=== PATIENT | female | born 1940 | race Caucasian/White ===

== ENCOUNTER 2017-08-23 18:41 | Inpatient (IN) ==
--- NOTE | 2017-08-23 19:06 | Emergency Department Note ---
Disposition Clinical Impression: Stroke Qualifiers: CVA mechanism: other Qualified Code(s): I63.8 - Other cerebral infarction Disposition: Admitted As Inpatient Condition: Good Referrals: Francisca Pan, [employer] MANAGER [Primary Care Provider] - Forms: ED Satisfaction Letter Time of Disposition: 22:00 General Adult HPI - General Chief complaint: ED Neuro Symptoms/Deficit Stated complaint: Left Arm Numbness / Tingling Time Seen by Provider: 08/23/17 18:46 Source: patient Limitations: no limitations Nursing Notes Reviewed: Yes Vital Signs Reviewed: Yes - History of Present Illness HPI Narrative: 77-year-old female positive for history of hypertension, chronic venous stasis, prediabetic, previous episodes of TIAs presents today with left-sided numbness starting since she woke up. Weakness starts at the shoulder also worse the distal arm. Patient says nothing relieves the weakness or numbness. She does not take anything for her symptoms. Denies chest pain, shortness of breath, cough, nausea, vomiting. No further acute complaints Pt Subjective Complaint: Left sided numbness and weakness - Related Data Home Medications Medication Instructions Recorded Confirmed ALPRAZolam [Xanax 0.5 MG Tablet] 0.5 mg PO TID 11/21/14 05/13/17 Albuterol Neb [Proventil Neb] 1 - 2 unit IH Q4HR 11/21/14 05/13/17 Calcium Carbonate/Vitamin D3 1 each PO DAILY 11/21/14 05/13/17 [Calcium 600 + D Tablet] Docusate [Colace] 100 mg PO BID 11/21/14 05/13/17 Fluticasone Propionate Nasal 1 spray NS DAILY 11/21/14 05/13/17 [Flonase] Gabapentin [Neurontin] 100 mg PO TID 11/21/14 05/13/17 Magnesium Oxide [Mag-Ox] 400 mg PO DAILY 11/21/14 05/13/17 Nitroglycerin [Nitrostat] 0.4 mg SL PRN PRN 11/21/14 05/13/17 Pantoprazole Sodium [Protonix] 40 mg PO DAILY 11/21/14 05/13/17 Potassium Chloride 20 meq PO DAILY 11/21/14 05/13/17 Pravastatin Sodium [Pravachol] 20 mg PO QPM 11/21/14 05/13/17 Aspirin/Calcium Carbonate/Mag 325 mg PO DAILY 04/22/16 05/13/17 [Aspirin Buffered 325 mg Tab] Ascorbic Acid [Vitamin C] 1,000 mg PO 08/07/17 Cephalexin [Keflex] 500 mg PO 08/07/17 Clotrimazole [Mycelex Amelia] 10 mg MM 5XD 08/07/17 08/07/17 Furosemide [Lasix] 20 mg PO DAILY 08/07/17 08/07/17 Metoprolol Succinate [Toprol Xl] 25 mg PO 08/07/17 Mv, Min #36/Iron,Carbonyl/FA 1 each PO 08/07/17 [Geritol Complete Tablet] Oxybutynin Chloride [Ditropan Xl] 5 mg PO 08/07/17 Super B Complex 08/07/17 Ubidecarenone [Coq10] 50 mg PO 08/07/17 Urea 08/07/17 Previous Rx's Medication Instructions Recorded Polyethylene Glycol 3350 [MiraLAX] 17 gm PO AD PRN #1 powd.pack 11/11/16 Calcium Carbonate [Calcium] 600 mg PO DAILY #30 tablet 05/15/17 Cholecalciferol (D-3) [Vitamin D] 5,000 unit PO DAILY #30 tablet 05/15/17 Sulfamethoxazole/Trimeth DS 1 each PO BID #14 tablet 08/07/17 [Bactrim DS] Tramadol HCl [Ultram] 50 mg PO TID PRN 5 Days #12 tab 08/07/17 Allergies Allergy/AdvReac Type Severity Reaction Status Date / Time bupropion [From Wellbutrin] Allergy Hives Verified 05/13/17 15:14 duloxetine [From Cymbalta] Allergy Hives Verified 08/07/17 19:10 Hydromorphone [From Dilaudid] Allergy Hives Verified 05/13/17 15:14 mirabegron [From Myrbetriq] Allergy Hives Verified 08/07/17 19:10 Oxaprozin [From Daypro] Allergy Rash Verified 05/13/17 15:14 acetaminophen [From Percocet] AdvReac Itching Verified 05/13/17 15:14 Oxycodone [From Percocet] AdvReac Itching Verified 05/13/17 15:14 Review of Systems: As Per HPI Constitutional: Reports: as per HPI Cardiovascular: Reports: as per HPI Respiratory: Reports: as per HPI Gastrointestinal: Reports: as per HPI Genitourinary: Reports: as per HPI Musculoskeletal: Reports: as per HPI Integumentary: Reports: as per HPI Neurological: Reports: as per HPI Past Medical History - Past Medical History Medical history: Reports: non-contributory Psychiatric history: Reports: depression - Social History Smoking Status: 2nd Hand Smoke Exposure Smokeless Tobacco Status: No Alcohol use: Reports: none Drug use: Reports: none Physical Exam - General Limitations: no limitations General appearance: alert, in no apparent distress - Head Head exam: atraumatic, normocephalic, normal inspection - Eye Eye exam: Present: normal appearance, PERRL, EOMI - Expanded Eye Exam Pupils: Left: reactive - ENT ENT exam: normal exam, normal oropharynx, mucous membranes moist - Expanded ENT Exam External ear exam: Present: normal external inspection Mouth exam: Present: normal external inspection Teeth exam: Present: normal inspection Throat exam: Present: normal inspection - Neck Neck exam: Present: normal inspection, full ROM, trachea midline - Chest Chest inspection: Present: normal inspection, symmetric chest wall rise - Respiratory Respiratory exam: Present: normal lung sounds bilaterally - Cardiovascular Cardiovascular exam: Present: regular rate, normal rhythm, normal heart sounds - Abdominal Exam Abdominal exam: Present: soft, Non-Tender. Absent: tenderness, distention, guarding, rebound, rigidity - Extremities Exam Extremities exam: Present: normal inspection, full ROM. Absent: tenderness, pedal edema - Expanded Upper Extremity Exam Shoulder exam: Present: normal inspection, full ROM Arm exam: Present: normal inspection, full ROM Elbow exam: Present: normal inspection, full ROM Forearm/Wrist exam: Present: normal inspection, full ROM Hand exam: Present: normal inspection, full ROM Vascular exam: Normal: capillary refill, radial pulse - Expanded Lower Extremity Exam Hip/Pelvis exam: Present: normal inspection, full ROM Upper leg exam: Present: normal inspection, full ROM Knee exam: Present: normal inspection, full ROM Lower leg exam: Present: normal inspection, full ROM Ankle exam: Present: normal inspection, full ROM Foot/toe exam: Present: normal inspection, full ROM Neurovascular/Tendon exam: Absent: motor deficit, sensory deficit, tendon deficit - Back Exam Back exam: Present: normal inspection, full ROM. Absent: tenderness - Neurological Exam Neurological exam: Present: alert, oriented X3 - Expanded Neurological Exam Patient oriented to: Present: person, place, time Coma Scale Eye Opening: Spontaneous Coma Scale Motor Response: Obeys Commands Coma Scale Verbal Response: Oriented Coma Scale Total: 15 - Psychiatric Psychiatric exam: Present: normal affect, normal mood - Skin Skin exam: Present: warm, dry, intact, normal color Course Course Narrative: Patient's CT head with multiple small foci of parenchymal low density. Likely chronic. Pending consult to neurology. - Reevaluation(s) Reevaluation #1: Spoke with Dr. Ariza, neurology, he recommends to admit patient into a hospitalist service for stroke workup. Pending admission - Consultations Consultation #1: Neurology, Dr. Ariza Vital Signs Temperature 98.9 F 08/23/17 18:58 Pulse Rate 68 08/23/17 18:58 Respiratory Rate 18 08/23/17 18:58 Blood Pressure 130/71 08/23/17 18:58 O2 Sat by Pulse Oximetry 96 08/23/17 18:58 Temperature 98.9 F 08/23/17 19:00 Pulse Rate 65 08/23/17 20:43 Respiratory Rate 18 08/23/17 22:07 Blood Pressure 125/59 08/23/17 22:07 O2 Sat by Pulse Oximetry 96 08/23/17 20:43 Oxygen Delivery Oxygen Delivery Room Air Medical Decision Making - Medical Records Medical records reviewed: Yes I reviewed the patient's medical records. - Lab Data Lab results reviewed: Yes I reviewed the patient's lab results. Result diagrams: 08/23/17 19:43 08/23/17 19:43 Lab Results 08/23/17 08/23/17 08/23/17 Range/Units 19:43 19:43 19:43 WBC 7.6 (4.3-11.1) K/mcL RBC 4.22 (3.82-4.97) M/mcL Hgb 13.0 (11.5-15.4) g/dL Hct 40.4 (35.3-44.9) % MCV 95.7 (83.0-100.0) fL MCH 30.8 (28.0-33.3) pg MCHC 32.2 (31.6-35.5) g/dL RDW 14.2 (11.5-14.5) % Plt Count 269 (140-400) K/mcL MPV 10.2 (9.4-12.4) fL Immature Gran % 0.5 (0-4) % Seg Neutrophils % 81.0 % Lymphocytes % 9.0 % Monocytes % 9.4 % Eosinophils % 0.0 % Basophils % 0.1 % Neutrophils # 6.1 (1.6-8.9) K/mcL Lymphocytes # 0.7 (0.6-4.6) K/mcL Monocytes # 0.7 (0.0-1.3) K/mcL Eosinophils # 0.0 (0.0-0.6) K/mcL Basophils # 0.0 (0.0-0.2) K/mcL PT (9.4-12.1) Seconds INR Sodium 142 (136-145) mEq/L Potassium 3.8 (3.5-5.1) mEq/L Chloride 108 H (98-107) mEq/L Carbon Dioxide 25 (23-29) mEq/L BUN 19 (8-23) mg/dL Creatinine 0.72 (0.60-1.20) mg/dL Est GFR ( Amer) > 60 (> 60) Est GFR (Non-Af Amer) > 60 (> 60) BUN/Creatinine Ratio 26 (6-26) Glucose 132 H (70-105) mg/dL Calculated Osmolality 298 (280-300) Calcium 9.4 (8.6-10.3) mg/dL Total Bilirubin 0.6 (0.3-1.0) mg/dL AST 24 (13-39) Units/L ALT 29 (7-52) Units/L Alkaline Phosphatase 61 (34-104) Units/L Troponin I < 0.03 (< 0.04) ng/mL Serum Total Protein 6.3 L (6.4-8.9) g/dL Albumin 3.6 (3.5-5.7) g/dL Globulin 2.7 (2.4-3.5) g/dL Albumin/Globulin Ratio 1.3 (1.1-2.2) 08/23/17 Range/Units 19:43 WBC (4.3-11.1) K/mcL RBC (3.82-4.97) M/mcL Hgb (11.5-15.4) g/dL Hct (35.3-44.9) % MCV (83.0-100.0) fL MCH (28.0-33.3) pg MCHC (31.6-35.5) g/dL RDW (11.5-14.5) % Plt Count (140-400) K/mcL MPV (9.4-12.4) fL Immature Gran % (0-4) % Seg Neutrophils % % Lymphocytes % % Monocytes % % Eosinophils % % Basophils % % Neutrophils # (1.6-8.9) K/mcL Lymphocytes # (0.6-4.6) K/mcL Monocytes # (0.0-1.3) K/mcL Eosinophils # (0.0-0.6) K/mcL Basophils # (0.0-0.2) K/mcL PT 11.9 (9.4-12.1) Seconds INR 1.1 Sodium (136-145) mEq/L Potassium (3.5-5.1) mEq/L Chloride (98-107) mEq/L Carbon Dioxide (23-29) mEq/L BUN (8-23) mg/dL Creatinine (0.60-1.20) mg/dL Est GFR ( Amer) (> 60) Est GFR (Non-Af Amer) (> 60) BUN/Creatinine Ratio (6-26) Glucose (70-105) mg/dL Calculated Osmolality (280-300) Calcium (8.6-10.3) mg/dL Total Bilirubin (0.3-1.0) mg/dL AST (13-39) Units/L ALT (7-52) Units/L Alkaline Phosphatase (34-104) Units/L Troponin I (< 0.04) ng/mL Serum Total Protein (6.4-8.9) g/dL Albumin (3.5-5.7) g/dL Globulin (2.4-3.5) g/dL Albumin/Globulin Ratio (1.1-2.2) - Radiology Data Radiology results reviewed: Yes I reviewed the patient's radiology results. - EKG Data EKG #1 EKG attestation: Yes I reviewed and interpreted this EKG. EKG shows normal: sinus rhythm Rate: normal Rhythm: NSR When compared to previous EKG there are: no significant changes Interpretation: no acute changes, normal EKG
[2017-08-23 19:59] LABS: Basophils % 0.1 %; Hematocrit 40.4 % (35.3-44.9); Immature Granulocytes % 0.5 % (0-4); Lymphocytes # 0.7 K/mcL (0.6-4.6); Mean Corpuscular HGB Conc 32.2 g/dL (31.6-35.5); Mean Corpuscular Hemoglobin 30.8 pg (28.0-33.3); Mean Corpuscular Volume 95.7 fL (83.0-100.0); Mean Platelet Volume 10.2 fL (9.4-12.4); Monocytes # 0.7 K/mcL (0.0-1.3); Monocytes % 9.4 %; Neutrophils # 6.1 K/mcL (1.6-8.9); Platelet Count 269 K/mcL (140-400); Red Blood Count 4.22 M/mcL (3.82-4.97); Red Cell Distribution Width 14.2 % (11.5-14.5)
[2017-08-23 20:05] LABS: INR 1.1; Prothrombin Time 11.9 Seconds (9.4-12.1)
[2017-08-23 20:18] LABS: Alanine Aminotransferase 29 Units/L (7-52); Albumin 3.6 g/dL (3.5-5.7); Albumin/Globulin Ratio 1.3 (1.1-2.2); Alkaline Phosphatase 61 Units/L (34-104); Aspartate Amino Transferase 24 Units/L (13-39); BUN/Creatinine Ratio 26 (6-26); Bilirubin,Total 0.6 mg/dL (0.3-1.0); Blood Urea Nitrogen 19 mg/dL (8-23); Calcium 9.4 mg/dL (8.6-10.3); Carbon Dioxide 25 mEq/L (23-29); Chloride 108 mEq/L (98-107); Globulin 2.7 g/dL (2.4-3.5); Glucose 132 mg/dL (70-105); Osmolality,Calculated 298 (280-300); Potassium 3.8 mEq/L (3.5-5.1); Sodium 142 mEq/L (136-145); Total Protein 6.3 g/dL (6.4-8.9); eGFR For African Americans > 60 (> 60); eGFR For Non-African Americans > 60 (> 60)
[2017-08-23] MEDS ORDERED: Aspirin 325 MG TABLET PO ONE (21:31)
[2017-08-23] MEDS ORDERED: Naloxone 0.4 MG/ML INJ IVP PRN (22:03)
--- NOTE | 2017-08-23 22:05 | Emergency Department Note ---
Disposition Clinical Impression: Stroke Qualifiers: CVA mechanism: other Qualified Code(s): I63.8 - Other cerebral infarction Disposition: Admitted As Inpatient Condition: Fair Neuro HPI - General Chief Complaint: ED Neuro Symptoms/Deficit Stated Complaint: Left Arm Numbness / Tingling Time Seen by Provider: 08/23/17 18:46 Source: patient Mode of arrival: ambulatory Limitations: no limitations Nursing Notes Reviewed: Yes Vital Signs Reviewed: Yes - Related Data Home Medications: Home Medications Medication Instructions Recorded Confirmed ALPRAZolam [Xanax 0.5 MG Tablet] 0.5 mg PO TID 11/21/14 05/13/17 Albuterol Neb [Proventil Neb] 1 - 2 unit IH Q4HR 11/21/14 05/13/17 Calcium Carbonate/Vitamin D3 1 each PO DAILY 11/21/14 05/13/17 [Calcium 600 + D Tablet] Docusate [Colace] 100 mg PO BID 11/21/14 05/13/17 Fluticasone Propionate Nasal 1 spray NS DAILY 11/21/14 05/13/17 [Flonase] Gabapentin [Neurontin] 100 mg PO TID 11/21/14 05/13/17 Magnesium Oxide [Mag-Ox] 400 mg PO DAILY 11/21/14 05/13/17 Nitroglycerin [Nitrostat] 0.4 mg SL PRN PRN 11/21/14 05/13/17 Pantoprazole Sodium [Protonix] 40 mg PO DAILY 11/21/14 05/13/17 Potassium Chloride 20 meq PO DAILY 11/21/14 05/13/17 Pravastatin Sodium [Pravachol] 20 mg PO QPM 11/21/14 05/13/17 Aspirin/Calcium Carbonate/Mag 325 mg PO DAILY 04/22/16 05/13/17 [Aspirin Buffered 325 mg Tab] Ascorbic Acid [Vitamin C] 1,000 mg PO 08/07/17 Cephalexin [Keflex] 500 mg PO 08/07/17 Clotrimazole [Mycelex Amelia] 10 mg MM 5XD 08/07/17 08/07/17 Furosemide [Lasix] 20 mg PO DAILY 08/07/17 08/07/17 Metoprolol Succinate [Toprol Xl] 25 mg PO 08/07/17 Mv, Min #36/Iron,Carbonyl/FA 1 each PO 08/07/17 [Geritol Complete Tablet] Oxybutynin Chloride [Ditropan Xl] 5 mg PO 08/07/17 Super B Complex 08/07/17 Ubidecarenone [Coq10] 50 mg PO 08/07/17 Urea 08/07/17 Previous Rx's Medication Instructions Recorded Polyethylene Glycol 3350 [MiraLAX] 17 gm PO AD PRN #1 powd.pack 11/11/16 Calcium Carbonate [Calcium] 600 mg PO DAILY #30 tablet 05/15/17 Cholecalciferol (D-3) [Vitamin D] 5,000 unit PO DAILY #30 tablet 05/15/17 Sulfamethoxazole/Trimeth DS 1 each PO BID #14 tablet 08/07/17 [Bactrim DS] Tramadol HCl [Ultram] 50 mg PO TID PRN 5 Days #12 tab 08/07/17 Allergies/Adverse Reactions: Allergies Allergy/AdvReac Type Severity Reaction Status Date / Time bupropion [From Wellbutrin] Allergy Hives Verified 05/13/17 15:14 duloxetine [From Cymbalta] Allergy Hives Verified 08/07/17 19:10 Hydromorphone [From Dilaudid] Allergy Hives Verified 05/13/17 15:14 mirabegron [From Myrbetriq] Allergy Hives Verified 08/07/17 19:10 Oxaprozin [From Daypro] Allergy Rash Verified 05/13/17 15:14 acetaminophen [From Percocet] AdvReac Itching Verified 05/13/17 15:14 Oxycodone [From Percocet] AdvReac Itching Verified 05/13/17 15:14 Constitutional: Reports: as per HPI Cardiovascular: Reports: as per HPI Respiratory: Reports: as per HPI Gastrointestinal: Reports: as per HPI Genitourinary: Reports: as per HPI Musculoskeletal: Reports: as per HPI Integumentary: Reports: as per HPI Neurological: Reports: as per HPI Past Medical History - Past Medical History Medical history: Reports: non-contributory Psychiatric history: Reports: depression - Social History Smoking Status: 2nd Hand Smoke Exposure Smokeless Tobacco Status: No Alcohol use: Reports: none Drug use: Reports: none Physical Exam - General Limitations: no limitations General appearance: alert, in no apparent distress Course Vital Signs Temperature 98.9 F 08/23/17 18:58 Pulse Rate 68 08/23/17 18:58 Respiratory Rate 18 08/23/17 18:58 Blood Pressure 130/71 08/23/17 18:58 O2 Sat by Pulse Oximetry 96 08/23/17 18:58 Temperature 98.9 F 08/23/17 19:00 Pulse Rate 65 08/23/17 20:43 Respiratory Rate 14 08/23/17 20:43 Blood Pressure 139/67 08/23/17 20:43 O2 Sat by Pulse Oximetry 96 08/23/17 20:43 Oxygen Delivery Oxygen Delivery Room Air Neuro Symptoms/Deficit - Lab Data Result diagrams: 08/23/17 19:43 08/23/17 19:43 Lab Results 08/23/17 08/23/17 08/23/17 Range/Units 19:43 19:43 19:43 WBC 7.6 (4.3-11.1) K/mcL RBC 4.22 (3.82-4.97) M/mcL Hgb 13.0 (11.5-15.4) g/dL Hct 40.4 (35.3-44.9) % MCV 95.7 (83.0-100.0) fL MCH 30.8 (28.0-33.3) pg MCHC 32.2 (31.6-35.5) g/dL RDW 14.2 (11.5-14.5) % Plt Count 269 (140-400) K/mcL MPV 10.2 (9.4-12.4) fL Immature Gran % 0.5 (0-4) % Seg Neutrophils % 81.0 % Lymphocytes % 9.0 % Monocytes % 9.4 % Eosinophils % 0.0 % Basophils % 0.1 % Neutrophils # 6.1 (1.6-8.9) K/mcL Lymphocytes # 0.7 (0.6-4.6) K/mcL Monocytes # 0.7 (0.0-1.3) K/mcL Eosinophils # 0.0 (0.0-0.6) K/mcL Basophils # 0.0 (0.0-0.2) K/mcL PT (9.4-12.1) Seconds INR Sodium 142 (136-145) mEq/L Potassium 3.8 (3.5-5.1) mEq/L Chloride 108 H (98-107) mEq/L Carbon Dioxide 25 (23-29) mEq/L BUN 19 (8-23) mg/dL Creatinine 0.72 (0.60-1.20) mg/dL Est GFR ( Amer) > 60 (> 60) Est GFR (Non-Af Amer) > 60 (> 60) BUN/Creatinine Ratio 26 (6-26) Glucose 132 H (70-105) mg/dL Calculated Osmolality 298 (280-300) Calcium 9.4 (8.6-10.3) mg/dL Total Bilirubin 0.6 (0.3-1.0) mg/dL AST 24 (13-39) Units/L ALT 29 (7-52) Units/L Alkaline Phosphatase 61 (34-104) Units/L Troponin I < 0.03 (< 0.04) ng/mL Serum Total Protein 6.3 L (6.4-8.9) g/dL Albumin 3.6 (3.5-5.7) g/dL Globulin 2.7 (2.4-3.5) g/dL Albumin/Globulin Ratio 1.3 (1.1-2.2) 08/23/17 Range/Units 19:43 WBC (4.3-11.1) K/mcL RBC (3.82-4.97) M/mcL Hgb (11.5-15.4) g/dL Hct (35.3-44.9) % MCV (83.0-100.0) fL MCH (28.0-33.3) pg MCHC (31.6-35.5) g/dL RDW (11.5-14.5) % Plt Count (140-400) K/mcL MPV (9.4-12.4) fL Immature Gran % (0-4) % Seg Neutrophils % % Lymphocytes % % Monocytes % % Eosinophils % % Basophils % % Neutrophils # (1.6-8.9) K/mcL Lymphocytes # (0.6-4.6) K/mcL Monocytes # (0.0-1.3) K/mcL Eosinophils # (0.0-0.6) K/mcL Basophils # (0.0-0.2) K/mcL PT 11.9 (9.4-12.1) Seconds INR 1.1 Sodium (136-145) mEq/L Potassium (3.5-5.1) mEq/L Chloride (98-107) mEq/L Carbon Dioxide (23-29) mEq/L BUN (8-23) mg/dL Creatinine (0.60-1.20) mg/dL Est GFR ( Amer) (> 60) Est GFR (Non-Af Amer) (> 60) BUN/Creatinine Ratio (6-26) Glucose (70-105) mg/dL Calculated Osmolality (280-300) Calcium (8.6-10.3) mg/dL Total Bilirubin (0.3-1.0) mg/dL AST (13-39) Units/L ALT (7-52) Units/L Alkaline Phosphatase (34-104) Units/L Troponin I (< 0.04) ng/mL Serum Total Protein (6.4-8.9) g/dL Albumin (3.5-5.7) g/dL Globulin (2.4-3.5) g/dL Albumin/Globulin Ratio (1.1-2.2) TPA Checklist - LKW: 3-4.5 hrs Add. Warnings/Precautions Patient/family understanding: The patient/family members have been counseled and understood the risk, benefit , and alternatives of treatment. Attestation Statement - Attestation Attestation: I, Marbin Arizmendi, examined this patient and my medical decision-making was reviewed with the [employer] T[employer]ER/PA/Advanced Practice Nurse/Resident Physician. I agree with the documented findings, disposition and treatment plan as described except to the extent set forth below. 77-year-old female presents emergency Department with concerns of left upper extremity paresthesias. Patient states symptoms started upon waking this morning. Last time was normal was last night prior to bed. Patient denies recent trauma. She has a history of TIAs in the past and followed Dr. Romero. Patient denies recent fever, chills, nausea, vomiting, chest pain, shortness of breath. No change in the patient's recent medications. CTA of the head did not show evidence of acute fracture or intracranial hemorrhage. Patient is not a candidate for TPA as she is outside the time window and also has an NIH of 1. I spoke with the neurologist, Dr. Romero as well as the [facility] neurologists who both agreed with this plan. Patient will be admitted to the hospitalist for further care and evaluation.
--- NOTE | 2017-08-23 22:24 | Internal Med History&Physical ---
Date of Encounter: 08/23/17 Time of Encounter: 21:00 Internal Medicine - H&P: HPI Chief complaint: Left arm numbness Admitted From: Home Plans for Post Hospital Care: Home History of present illness: Ms. Chase is a 77 year old female present to ER for left arm numbness. Past medical history is significant for history of TIA, breast cancer, prediabetes, hypertension, asthma, S/P bilateral total knee replacement, S/P bariatric surgery. Patient said this morning around 8 AM when she wakes up from sleep she feels left arm numbness and weakness with left hand and finger tingling. Patient denies slurred speech, vision change, or dizziness. The symptoms is mild but persistent, patient came to ER for evaluation. In the emergency room, [facility] stroke center consult was called. Patient is not a candidate for TPA. I will neurology was called and recommend admit patient to hospital for further management. Patient was given aspirin 325 mg by mouth once and admitted to the hospital. When I saw patient in ER, her symptoms has slightly improved but not completely resolved. Past Med Surg Social Fam HX - Past Medical History Medical history: non-contributory Additional medical history: barrets esophagus Psychiatric history: depression - Past Surgical History Additional surgical history: gastric bypass, right rotator cuff surgery - Social History Smoking Status: 2nd Hand Smoke Exposure Smokeless Tobacco Status: No Alcohol use: none Drug use: none - Family History Mother History Unknown: Yes Internal Medicine - H&P: Meds ALPRAZolam [Xanax 0.5 MG Tablet] 0.5 mg PO TID 11/21/14 [History] Albuterol Neb [Proventil Neb] 1 - 2 unit IH Q4HR 11/21/14 [History] Calcium Carbonate/Vitamin D3 [Calcium 600 + D Tablet] 1 each PO DAILY 11/21/14 [ History] Docusate [Colace] 100 mg PO BID 11/21/14 [History] Fluticasone Propionate Nasal [Flonase] 1 spray NS DAILY 11/21/14 [History] Gabapentin [Neurontin] 100 mg PO TID 11/21/14 [History] Magnesium Oxide [Mag-Ox] 400 mg PO DAILY 11/21/14 [History] Nitroglycerin [Nitrostat] 0.4 mg SL PRN PRN 11/21/14 [History] Pantoprazole Sodium [Protonix] 40 mg PO DAILY 11/21/14 [History] Potassium Chloride 20 meq PO DAILY 11/21/14 [History] Pravastatin Sodium [Pravachol] 20 mg PO QPM 11/21/14 [History] Aspirin/Calcium Carbonate/Mag [Aspirin Buffered 325 mg Tab] 325 mg PO DAILY 09/29 [History] Polyethylene Glycol 3350 [MiraLAX] 17 gm PO AD PRN #1 powd.pack 11/11/16 [Rx] Calcium Carbonate [Calcium] 600 mg PO DAILY #30 tablet 05/15/17 [Rx] Cholecalciferol (D-3) [Vitamin D] 5,000 unit PO DAILY #30 tablet 05/15/17 [Rx] Ascorbic Acid [Vitamin C] 1,000 mg PO 08/07/17 [History] Cephalexin [Keflex] 500 mg PO 08/07/17 [History] Clotrimazole [Mycelex Amelia] 10 mg MM 5XD 08/07/17 [History] Furosemide [Lasix] 20 mg PO DAILY 08/07/17 [History] Metoprolol Succinate [Toprol Xl] 25 mg PO 08/07/17 [History] Mv, Min #36/Iron,Carbonyl/FA [Geritol Complete Tablet] 1 each PO 08/07/17 [ History] Oxybutynin Chloride [Ditropan Xl] 5 mg PO 08/07/17 [History] Sulfamethoxazole/Trimeth DS [Bactrim DS] 1 each PO BID #14 tablet 08/07/17 [Rx] Super B Complex 08/07/17 [History] Tramadol HCl [Ultram] 50 mg PO TID PRN 5 Days #12 tab 08/07/17 [Rx] Ubidecarenone [Coq10] 50 mg PO 08/07/17 [History] Urea 08/07/17 [History] 3 Allergy/AdvReac Type Severity Reaction Status Date / Time bupropion [From Wellbutrin] Allergy Hives Verified 05/13/17 15:14 duloxetine [From Cymbalta] Allergy Hives Verified 08/07/17 19:10 Hydromorphone [From Dilaudid] Allergy Hives Verified 05/13/17 15:14 mirabegron [From Myrbetriq] Allergy Hives Verified 08/07/17 19:10 Oxaprozin [From Daypro] Allergy Rash Verified 05/13/17 15:14 acetaminophen [From Percocet] AdvReac Itching Verified 05/13/17 15:14 Oxycodone [From Percocet] AdvReac Itching Verified 05/13/17 15:14 All Systems PM: A 10-system review of systems was performed and is negative for pertinent findings except as documented above in the HPI. - Constitutional Vitals: Temp Pulse Resp BP Pulse Ox 98.9 F 65 18 125/59 96 08/23/17 19:00 08/23/17 20:43 08/23/17 22:07 08/23/17 22:07 08/23/17 20:43 General appearance: Present: A&O X 3, no acute distress, answers questions appropriately - Head Head exam: Present: atraumatic, normocephalic - Eye Eye exam: Present: PERRL, conjuntiva pink, sclera anicteric Pupils: Present: PERRL - Neck Neck exam general surgery: Present: supple, trachea midline. Absent: lymphadenopathy - Respiratory Respiratory exam: Present: CTAB. Absent: accessory muscle use, rales, rhonchi, wheezes - Cardiovascular Cardiovascular exam: Present: RRR, +S1, +S2. Absent: diastolic murmur, gallop, rubs, systolic murmur - GI/Abdominal GI/Abdominal exam: Present: normal bowel sounds, soft, no peritoneal signs. Absent: distended, tenderness - Extremities Exam Extremities exam: Present: warm, radial pulses palpable and symmetrical. Absent : calf tenderness, cyanotic, pedal edema - Neurological Exam Neurological exam: Present: CN II-XII intact, motor sensory deficit (Left arm Motor 5-/5), oriented X3, no focal deficits. Absent: pronater drift, facial droop, speech deficit - Skin Skin exam: Present: dry, intact Internal Med - H&P Results - Labs CBC & Chem 7: 08/23/17 19:43 08/23/17 19:43 - Assessment and plan (1) Stroke Current Visit: Yes Status: Acute Assessment and plan: Patient has left arm weakness and numbness. Suspect CVA. History of TIA. CT head has been done, no bleeding, no acute abnormalities. - We will place a MR Head in AM - Continuous cardiac monitoring to rule out occult A. fib - Echo and duplex carotid bilaterally - Neurology consult - [facility] SS protocol - PTOT evaluation - Patient has no swallow problems, will place her on diabetic diet Qualifiers: CVA mechanism: other Qualified Code(s): I63.8 - Other cerebral infarction (2) Hypertension Current Visit: Yes Status: Acute Assessment and plan: Patient BP is not high. Hold hypertensive medication for permissive hypertension as CVA is suspected. Qualifiers: Hypertension type: essential hypertension Qualified Code(s): I10 - Essential (primary) hypertension (3) Prediabetes Current Visit: Yes Status: Acute Assessment and plan: Continue diet control. (4) DVT prophylaxis Current Visit: Yes Status: Acute Assessment and plan: Heparin subcutaneously (5) Breast cancer Current Visit: No Status: Chronic Assessment and plan: S/P surgery and radiation therapy. Continue outpatient follow-up. Qualifiers: Breast location: unspecified site of breast Estrogen receptor status: unspecified Patient sex: female Laterality: left Qualified Code(s): C50.912 - Malignant neoplasm of unspecified site of left female breast - Time Spent With Patient Total time spent is greater than 50% in coordination of care (as documented) at patient's floor/unit and/or counseling patient:
[2017-08-23] MEDS ORDERED: Nitroglycerin 0.4 MG TAB.SUBL SL PRN (23:55)
[2017-08-24] MEDS: Gabapentin 100 MG CAPSULE PO SCH ×4 (00:55→23:48)
[2017-08-24] MEDS: ALPRAZolam 0.5 MG TABLET PO SCH ×3 (00:55→23:49)
[2017-08-24] MEDS: Albuterol 2.5 MG/3 ML NEBULIZER IH SCH ×7 (03:25→23:03)
[2017-08-24 05:08] LABS: Hematocrit 38.7 % (35.3-44.9); Hemoglobin 12.4 g/dL (11.5-15.4); Immature Granulocytes % 0.6 % (0-4); Lymphocytes # 0.9 K/mcL (0.6-4.6); Lymphocytes % 14.1 %; Mean Corpuscular Hemoglobin 30.8 pg (28.0-33.3); Mean Platelet Volume 10.2 fL (9.4-12.4); Monocytes # 0.6 K/mcL (0.0-1.3); Monocytes % 9.5 %; Neutrophils # 4.7 K/mcL (1.6-8.9); Platelet Count 230 K/mcL (140-400); Red Blood Count 4.03 M/mcL (3.82-4.97); Red Cell Distribution Width 14.2 % (11.5-14.5); Segmented Neutrophils % 75.8 %
[2017-08-24 05:31] LABS: BUN/Creatinine Ratio 28 (6-26); Blood Urea Nitrogen 14 mg/dL (8-23); Calcium 8.9 mg/dL (8.6-10.3); Carbon Dioxide 25 mEq/L (23-29); Chloride 110 mEq/L (98-107); Glucose 128 mg/dL (70-105); Osmolality,Calculated 294 (280-300); Potassium 3.9 mEq/L (3.5-5.1); Sodium 141 mEq/L (136-145); eGFR For African Americans > 60 (> 60); eGFR For Non-African Americans > 60 (> 60)
[2017-08-24] MEDS: *HR* Heparin 5,000 UNIT/ML VIAL SQ SCH ×2 (05:32→18:13)
[2017-08-24] MEDS: Aspirin Enteric Coated 325 MG Tablet PO SCH (08:59)
[2017-08-24] MEDS: Magnesium Oxide 400 MG TABLET PO SCH (08:59)
[2017-08-24] MEDS: Fluticasone Propionate Nasal 50 MCG/SPRAY BOTTLE NS SCH (09:00)
[2017-08-24] MEDS: Cholecalciferol (D-3) 1,000 UNIT TABLET PO SCH (09:00)
[2017-08-24] MEDS ORDERED: NON-FORMULARY MEDICATION 1 EACH EACH (Calcium Carbonate/Vitamin D3 [Calcium 600 + D Tablet PO SCH (09:00)
--- NOTE | 2017-08-24 10:43 | Neurology - Consult Note ---
Date of Encounter: 08/24/17 Time of Encounter: 09:15 Assessment and Plan (1) Left arm weakness Current Visit: Yes Status: Acute Patient presented with complaints of left Upper extremity weakness and feeling that the arm felt "off" Patient reported feeling off from shoulder down to hand. Patient reports feeling has improved now just finger pads feel "off" Patient has hx of prediabietes, prior TIAs, and family hx of stroke. On exam strength appears symmetric in upper extremities, some strength seems to be limited by pain in L shoulder which is chronic. Only deficit appears to be "off" sensation in L finger pads at this time. Based on patient's presentation differential is stroke vs TIA vs. radiculopathy vs. peripheral neuropathy. Recommend completing stroke work up as planned: MRI Carotid U/S ECHO Cardiac Monitoring PT/OT consult Maximize medical management of risk factors Patient already on statin(though not high intensity statin) with good LDL History of Present Illness Chief complaint: L arm Weakness HPI: Ms. Chase is a 77 year old female c PMHx of TIA, breast cancer, prediabetes, hypertension, asthma, S/P bilateral total knee replacement, S/P bariatric surgery reports to [facility] yesterday morning c/o L Arm Weakness that was present upon waking. Patient reports she woke up the morning of 08/23/17 and went to clean the toilet. She attempted to turn the water valve on the back of the toilet which she has done routinely for years and found she was unable to turn it. She noted at that time her whole arm felt "off". She came into the ED and was worked up for possible stroke. On their exam patient had NIH stroke scale of 1. Unclear in documentation, but likely 1 point was for sensation difference. Patient had a CT head which showed old hypodensities, but no acute pathology. Last known normal was the night before. Teleneurology consult with [facility] was performed and consult to neurology here at [facility] placed. No TPA given as patient out of window and low NIH stroke scale. Patient denies recent trauma, changes in medications, recent fever, illness. Patient denies chest pain, SOB, Abd pain, Nausea, vomiting. Patient is on statin and aspirin. Patient recent Cholesterol panel in June of 2017 showed LDL of 54. Patient denies having any LLE sxs, Facial sxs, or slurred speech. She reports her sxs have improved and only the pads of all 5 fingers feel "off" to her right now. Past Med Surg Social Fam HX - Past Medical History Medical history: non-contributory Additional medical history: barrets esophagus Psychiatric history: depression - Past Surgical History Additional surgical history: gastric bypass, right rotator cuff surgery - Social History Smoking Status: 2nd Hand Smoke Exposure Smokeless Tobacco Status: No Alcohol use: none Drug use: none - Family History Mother History Unknown: Yes Medications and Allergies ALPRAZolam [Xanax 0.5 MG Tablet] 0.5 mg PO QPM 11/21/14 [History] Albuterol Neb [Proventil Neb] 1 - 2 unit IH Q4HR 11/21/14 [History] Calcium Carbonate/Vitamin D3 [Calcium 600 + D Tablet] 1 each PO DAILY 11/21/14 [ History] Fluticasone Propionate Nasal [Flonase] 1 spray NS DAILY 11/21/14 [History] Gabapentin [Neurontin] 100 mg PO TID 11/21/14 [History] Magnesium Oxide [Mag-Ox] 400 mg PO DAILY 11/21/14 [History] Nitroglycerin [Nitrostat] 0.4 mg SL PRN PRN 11/21/14 [History] Pantoprazole Sodium [Protonix] 40 mg PO DAILY 11/21/14 [History] Potassium Chloride 20 meq PO DAILY 11/21/14 [History] Pravastatin Sodium [Pravachol] 20 mg PO QPM 11/21/14 [History] Aspirin/Calcium Carbonate/Mag [Aspirin Buffered 325 mg Tab] 325 mg PO DAILY 09/29 [History] Polyethylene Glycol 3350 [MiraLAX] 17 gm PO AD PRN #1 powd.pack 11/11/16 [Rx] Calcium Carbonate [Calcium] 600 mg PO DAILY #30 tablet 05/15/17 [Rx] Cholecalciferol (D-3) [Vitamin D] 5,000 unit PO DAILY #30 tablet 05/15/17 [Rx] Ascorbic Acid [Vitamin C] 1,000 mg PO 08/07/17 [History] Clotrimazole [Mycelex Amelia] 10 mg MM 5XD 08/07/17 [History] Furosemide [Lasix] 20 mg PO DAILY 08/07/17 [History] Metoprolol Succinate [Toprol Xl] 25 mg PO 08/07/17 [History] Mv, Min #36/Iron,Carbonyl/FA [Geritol Complete Tablet] 1 each PO 08/07/17 [ History] Oxybutynin Chloride [Ditropan Xl] 5 mg PO 08/07/17 [History] Super B Complex 08/07/17 [History] Tramadol HCl [Ultram] 50 mg PO TID PRN 5 Days #12 tab 08/07/17 [Rx] Urea 08/07/17 [History] 3 Allergy/AdvReac Type Severity Reaction Status Date / Time bupropion [From Wellbutrin] Allergy Hives Verified 05/13/17 15:14 duloxetine [From Cymbalta] Allergy Hives Verified 08/07/17 19:10 Hydromorphone [From Dilaudid] Allergy Hives Verified 05/13/17 15:14 mirabegron [From Myrbetriq] Allergy Hives Verified 08/07/17 19:10 Oxaprozin [From Daypro] Allergy Rash Verified 05/13/17 15:14 acetaminophen [From Percocet] AdvReac Itching Verified 05/13/17 15:14 Oxycodone [From Percocet] AdvReac Itching Verified 05/13/17 15:14 All Systems: The remainder of the systems were reviewed and are negative Review of Systems: As per HPI. Physical Examination - Vital Signs Vital Signs: Initial Vital Signs Temp Pulse Resp BP Pulse Ox 98.9 F 68 18 130/71 96 08/23/17 18:58 08/23/17 18:58 08/23/17 18:58 08/23/17 18:58 08/23/17 18:58 - Constitutional General appearance: comfortable - Neurologic Motor examination - right side: 4/5: deltoids, biceps, triceps, wrist flexion, wrist extension, bridge crane operator, hip flexors, 5/5: tibialis Anterior, plantarflexion Motor examination - left side: 4/5: deltoids, biceps, triceps, wrist flexion, wrist extension, hip flexors, bridge crane operator, 5/5: tibialis Anterior, plantarflexion Detailed sensory examination: other (decreased sensation in finger pads of L hand, otherwise normal, equal sensation to light touch throughout.) Reflex and gait examination: other (babinski toes down going b/l, negative brooke's b/l) Reflexes: Biceps: 2+, Triceps: 2+ Mental Status Examination: awake, alert, oriented to person, oriented to place, oriented to time, follows commands appropriately, answers questions appropriately, no aphasia Cranial nerve examination: PERRL, EOMI, sensory to face intact, no facial asymmetry is present, no dysarthria, hearing is intact symmetrically, soft palate elevates bilaterally upon phonation, flexes SCM and trapezius muscles symmetrically with full power, tongue protrudes midline Cerebellar examination: no dysmetria, no difficulty with rapid alternating movements Results - Laboratory Findings CBC and BMP: 08/24/17 04:55 08/24/17 04:55 Abnormal lab findings: Abnormal lab results Chloride 110 mEq/L (98-107) H 08/24/17 04:55 Creatinine 0.50 mg/dL (0.60-1.20) L 08/24/17 04:55 BUN/Creatinine Ratio 28 (6-26) H 08/24/17 04:55 Glucose 128 mg/dL (70-105) H 08/24/17 04:55 POC Glucose 112 mg/dL (70-99) H 08/23/17 22:58 Serum Total Protein 6.3 g/dL (6.4-8.9) L 08/23/17 19:43 Consult Discharge Plan - Plan Referrals: Francisca Pan, TEST RACK OPERATOR [Primary Care Provider] -
[2017-08-24] MEDS: Ondansetron 4 MG/2 ML VIAL IVP PRN ×2 (13:31→20:10)
--- NOTE | 2017-08-24 15:34 | Electrocardiograph Report ---
[address] [place], [place] [address] Test Date: 2017-08-23 Pat Name: Rosalba Chase Department: 103 Room: 3B Gender: F Trouble Clerk: TMR : 1940 Requested By: Johnathon Cuevas Order Number: [id number] Reading MD: Bud Ma Measurements Intervals [place] Rate: 64 P: 19 NE: 121 QRS: 0 QRSD: 102 T: 29 QT: 394 QTc: 403 Interpretive Statements SINUS RHYTHM Poor R wave progression Electronically Signed On 08-24-2017 15:32:52 EDT by Bud Ma
--- NOTE | 2017-08-24 18:09 | Internal Med Progress Note ---
Date of Encounter: 08/24/17 Time of Encounter: 12:00 - Assessment and plan (1) Breast cancer Current Visit: Yes Status: Chronic Assessment and plan: S/P surgery and radiation therapy. Continue outpatient follow-up with cancer center. Qualifiers: Breast location: unspecified site of breast Estrogen receptor status: unspecified Patient sex: female Laterality: left Qualified Code(s): C50.912 - Malignant neoplasm of unspecified site of left female breast (2) Stroke Current Visit: Yes Status: Acute Assessment and plan: Patient has left arm weakness and numbness, sensory deficit. History of TIA. CT head negative, MRI of brain negative. Echocardiogram shows LVEF of 50 per mild LV DD, no significant valvular dysfunction and no evidence of PFO. Bilateral carotids within normal limits. Patient has been evaluated by neurology, there is concern for this type of presentation is compressive mononeuropathy, such as carpal tunnel syndrome. Patient should follow up for EMG. Physical therapy consult recommends SNF/ECF on discharge. - Continuous cardiac monitoring to rule out occult A. fib - PTOT evaluation - Patient has no swallow problems, will place her on diabetic diet Qualifiers: CVA mechanism: other Qualified Code(s): I63.8 - Other cerebral infarction (3) Hypertension Current Visit: Yes Status: Acute Assessment and plan: Chronic. Continue home medications. Qualifiers: Hypertension type: essential hypertension Qualified Code(s): I10 - Essential (primary) hypertension (4) Prediabetes Current Visit: Yes Status: Acute Assessment and plan: Continue diet control. Patient is on diabetic diet. (5) DVT prophylaxis Current Visit: Yes Status: Acute Assessment and plan: Heparin - Time Spent With Patient Total time spent is greater than 50% in coordination of care (as documented) at patient's floor/unit and/or counseling patient: less than 15 minutes - Subjective Interval history: Patient was seen and assessed at bedside at 12:00. She reports left arm numbness and some weakness since yesterday. Strength does appear to be equal bilateral. Lower extremities. Patient with what appears to be chronic cellulitis to left lower extremity. Patient states that she has been referred to physical therapy in the past but is unable to complete it due to cellulitis. Patient denies any nausea, vomiting, vision changes, headaches, dizziness, neck pain. She denies pain, denies any weakness or tingling to extremities. - Constitutional Vitals: Temp Pulse Resp BP Pulse Ox 98.8 F 75 16 108/69 95 08/24/17 15:35 08/24/17 15:35 08/24/17 16:52 08/24/17 15:35 08/24/17 16:52 General appearance: Present: A&O X 3, pleasant, no acute distress, answers questions appropriately - Head Head exam: Present: atraumatic, normal inspection, normocephalic - Eye Eye exam: Present: normal appearance, conjuntiva pink, sclera anicteric - Neck Neck exam general surgery: Present: supple, trachea midline. Absent: lymphadenopathy, tenderness - Respiratory Respiratory exam: Present: CTAB. Absent: accessory muscle use, chest wall tenderness, rales, respiratory distress, rhonchi, wheezes - Cardiovascular Cardiovascular exam: Present: RRR, +S1, +S2. Absent: diastolic murmur, gallop, rubs, systolic murmur - GI/Abdominal GI/Abdominal exam: Present: normal bowel sounds, soft. Absent: distended, tenderness - Extremities Exam Extremities exam: Present: pedal edema, tenderness, warm, radial pulses palpable and symmetrical. Absent: calf tenderness, cyanotic, normal capillary refill, normal inspection - Neurological Exam Neurological exam: Present: alert, motor sensory deficit, oriented X3, no focal deficits, strengths equal and symetr throughout. Absent: pronater drift, facial droop, speech deficit - Skin Skin exam: Present: dry, intact, normal color, warm. Absent: rash Internal Medicine: Result - Labs CBC & Chem 7: 08/24/17 04:55 08/24/17 04:55 Labs: Short CBC 08/24/17 Range/Units 04:55 WBC 6.2 (4.3-11.1) K/mcL Hgb 12.4 (11.5-15.4) g/dL Hct 38.7 (35.3-44.9) % Plt Count 230 (140-400) K/mcL Neutrophils # 4.7 (1.6-8.9) K/mcL BMP 08/24/17 04:55 Sodium 141 Potassium 3.9 Chloride 110 H Carbon Dioxide 25 BUN 14 Creatinine 0.50 L Glucose 128 H Calcium 8.9 - ABG Interpretation ABG results: PT/INR, D-dimer PT 11.9 Seconds (9.4-12.1) 08/23/17 19:43 - Impressions Impressions Brain MRI 08/23/17 22:06 IMPRESSION: No acute abnormality. D/ / Reinaldo Lange MD / Reinaldo Lange MD Interpreting Provider: Reinaldo Lange MD Echocardiogram 08/24/17 10:00 Impressions: LVEF 50%. Normal LV chamber size, wall thickness and function. Mild left ventricular diastolic dysfunction. Normal right ventricular structure and function. No evidence of pulmonary hypertension. No significant valvular dysfunction. No evidence of a PFO with agitated saline contrast. Left Ventricular Wall Motion: Rest Echo Findings All wall segments showed normal motion. Findings: Study Quality * Technically sub-optimal due to poor echocardiographic windows. ECG Findings * Normal sinus rhythm. Left Ventricle * LVEF 50%. * Normal LV chamber size, wall thickness and function. * Mild left ventricular diastolic dysfunction. Right Ventricle * Normal right ventricular structure and function. Left Atrium * Moderately dilated left atrium. Right Atrium * Mildly dilated right atrium. Aortic Valve * Aortic valve not well visualized. * No aortic regurgitation. * No aortic stenosis. Mitral Valve * Normal mitral valve structure and function. * No mitral regurgitation. * No mitral stenosis. Tricuspid Valve * Normal tricuspid valve structure and function. * Trace tricuspid regurgitation. * No evidence of pulmonary hypertension. Pulmonic Valve * Pulmonic valve not well visualized. * No pulmonic regurgitation. Aorta * Normally sized aortic root. Pericardium * The pericardium appears normal. IVC * The IVC is not well evaluated. Pulmonary Artery * Pulmonary artery not well visualized. Interatrial Septum * No evidence of PFO with agitated saline contrast. Consult Discharge Plan - Plan Referrals: Francisca Pan, DIRECTOR LEARNING [Primary Care Provider] -
[2017-08-24] MEDS: Furosemide 20 MG TABLET PO SCH (18:14)
[2017-08-24] MEDS: traMADol 50 MG TABLET PO PRN (22:26)
[2017-08-25] MEDS: Albuterol 2.5 MG/3 ML NEBULIZER IH SCH ×6 (03:33→23:18)
[2017-08-25] MEDS: *HR* Heparin 5,000 UNIT/ML VIAL SQ SCH ×2 (05:32→18:20)
[2017-08-25] MEDS: Ipratropium/Albuterol Neb 3 ML IH PRN (07:15)
[2017-08-25] MEDS: Cholecalciferol (D-3) 1,000 UNIT TABLET PO SCH (10:36)
[2017-08-25] MEDS: Magnesium Oxide 400 MG TABLET PO SCH (10:36)
[2017-08-25] MEDS: Gabapentin 100 MG CAPSULE PO SCH ×2 (10:36→13:59)
[2017-08-25] MEDS: Fluticasone Propionate Nasal 50 MCG/SPRAY BOTTLE NS SCH (10:37)
[2017-08-25] MEDS: Aspirin Enteric Coated 325 MG Tablet PO SCH (10:37)
[2017-08-25] MEDS: Furosemide 20 MG TABLET PO SCH (10:44)
--- NOTE | 2017-08-25 12:51 | Neurology Progress Note ---
Date of Encounter: 08/25/17 Time of Encounter: 12:48 Assessment and Plan (1) CTS (carpal tunnel syndrome) Current Visit: Yes Status: Acute My impression is that this lady does have risk factors for stroke but MRI of brain did not show evidence of CVA due to the fact the sensory symptoms are still present more than 48 hours in duration her symptoms are unlikely the result of stroke or TIA. symptoms mostly consistent with CTS but initially her symptoms are also involving upper arms therefore cervical radiculopaty also in the differentials but she is certainly not myelopathic. The symptoms now limited to her finger pads therefore not radicular type. Will recommend outpatient EMG/NCV and treatment after would depend on what EMG/NCV study show. Will sign off now and please if any questions Qualifiers: Laterality: left Qualified Code(s): G56.02 - Carpal tunnel syndrome, left upper limb Subjective Principal diagnosis: left arm/hand numbness Interval history: Patient seen and examined. She still has left hand finger pads numbness but it no longer involve the upper arm now. No weakness. stroke work up completed and showed no evidence of stroke. Concerning CTS. Objective - Constitutional Vitals: Temp Pulse Resp BP Pulse Ox 99.1 F 78 17 135/75 95 08/25/17 11:42 08/25/17 11:42 08/25/17 11:42 08/25/17 11:42 08/25/17 11:42 - Neurological Exam Sensorimotor examination: Present: intact (except left finger pad numbness) Motor Examination: Present: grossly full strength in all extremities Motor examination - right side: 5/5: deltoids, biceps, triceps, wrist flexion, wrist extension, cost clerk, hip flexors, tibialis Anterior, quadriceps, toe extension (EHL), plantarflexion Motor examination - left side: 5/5: deltoids, biceps, triceps, wrist flexion, wrist extension, hip flexors, cost clerk, quadriceps, tibialis Anterior, toe extension (EHL), plantarflexion Sensation intact: Present: other (decreased sensation in finger pads of L hand, otherwise normal, equal sensation to light touch throughout.) Reflex and gait examination: other (babinski toes down going b/l, negative brooke's b/l) Reflexes: Biceps: 1+, Triceps: 1+, Brachioradialis: 1+, Patella: 1+, Achilles: 1 + Mental Status Examination: Present: awake, alert, oriented to person, oriented to place, oriented to time, follows commands appropriately, answers questions appropriately, no aphasia Cranial nerve examination: Present: PERRL, EOMI, sensory to face intact, no facial asymmetry is present, no dysarthria, hearing is intact symmetrically, soft palate elevates bilaterally upon phonation, flexes SCM and trapezius muscles symmetrically with full power, tongue protrudes midline Cerebellar examination: Present: no dysmetria, no difficulty with rapid alternating movements Results - Laboratory Findings CBC and BMP: 08/24/17 04:55 08/24/17 04:55 Abnormal lab findings: Abnormal lab results Chloride 110 mEq/L (98-107) H 08/24/17 04:55 Creatinine 0.50 mg/dL (0.60-1.20) L 08/24/17 04:55 BUN/Creatinine Ratio 28 (6-26) H 08/24/17 04:55 Glucose 128 mg/dL (70-105) H 08/24/17 04:55 POC Glucose 114 mg/dL (70-99) H 08/25/17 07:55 Serum Total Protein 6.3 g/dL (6.4-8.9) L 08/23/17 19:43 Consult Discharge Plan - Plan Referrals: Francisca Pan, TOW FEEDER [Primary Care Provider] -
--- NOTE | 2017-08-25 16:34 | Internal Med Progress Note ---
Date of Encounter: 08/25/17 Time of Encounter: 16:32 - Assessment and plan (1) Paresthesia of left arm Current Visit: Yes Status: Acute Assessment and plan: Presented with paresthesias of left upper arm. Head CT nonacute. Brain MRI without evidence of infarct. Bilateral carotid Dopplers showed normal right carotid arteries and minimal plaque throughout the left carotid artery. TTE with EF 50%, mild diastolic dysfunction, no evidence of PFO, no significant valvular dysfunction. Evaluated by neurology who suspects carpal tunnel syndrome and recommend outpatient EMG. Symptoms resolving but still present on 08/25 exam. (2) Stroke Current Visit: Yes Status: Acute Assessment and plan: Patient reports history of TIA. Symptoms and workup as noted above. ont home ASA, statin Qualifiers: CVA mechanism: other Qualified Code(s): I63.8 - Other cerebral infarction (3) Hypertension Current Visit: Yes Status: Acute Assessment and plan: per hx. BP controlled. Cont home BP medications Qualifiers: Hypertension type: essential hypertension Qualified Code(s): I10 - Essential (primary) hypertension (4) Prediabetes Current Visit: Yes Status: Acute Assessment and plan: Continue diet control. Patient is on diabetic diet. (5) Breast cancer Current Visit: Yes Status: Chronic Assessment and plan: S/P surgery and radiation therapy. Continue outpatient follow-up with cancer center. Qualifiers: Breast location: unspecified site of breast Estrogen receptor status: unspecified Patient sex: female Laterality: left Qualified Code(s): C50.912 - Malignant neoplasm of unspecified site of left female breast (6) Morbid obesity Current Visit: Yes Status: Acute Assessment and plan: BMI 55; weight 133 kg. Lifestyle modifications encouraged but not likely (7) DVT prophylaxis Current Visit: Yes Status: Acute Assessment and plan: Heparin - Time Spent With Patient Total time spent is greater than 50% in coordination of care (as documented) at patient's floor/unit and/or counseling patient: - Subjective Interval history: Seen and examined at bedside. Patient is new to me, information obtained from chart review and patient report other patient is difficult to keep focused during exam and frequently will go from one topic to another. Does not stay focused. Overall says she has had an upsetting and nerve-racking day. She still undecided on she wants to go to an ECF at discharge or not. Reports concern over new diagnosis possible carpal tunnel syndrome as well as lower extremity with redness and dry skin. - Constitutional Vitals: Temp Pulse Resp BP Pulse Ox 98.3 F 75 17 109/63 99 08/25/17 15:52 08/25/17 15:52 08/25/17 15:52 08/25/17 15:52 08/25/17 15:52 General appearance: Present: A&O X 3, morbidly obese, pleasant, no acute distress, answers questions appropriately - Head Head exam: Present: atraumatic, normocephalic - Eye Eye exam: Present: PERRL, conjuntiva pink, sclera anicteric Pupils: Present: PERRL - Neck Neck exam general surgery: Present: supple, trachea midline. Absent: lymphadenopathy - Respiratory Respiratory exam: Present: CTAB. Absent: accessory muscle use, rales, rhonchi, wheezes - Cardiovascular Cardiovascular exam: Present: RRR, +S1, +S2. Absent: diastolic murmur, gallop, rubs, systolic murmur - GI/Abdominal GI/Abdominal exam: Present: normal bowel sounds, soft, no peritoneal signs. Absent: distended, tenderness - Extremities Exam Extremities exam: Present: pedal edema, warm, radial pulses palpable and symmetrical. Absent: calf tenderness, cyanotic Additional comments: Mild, hard lower extremity edema with dependent rubor - Neurological Exam Neurological exam: Present: CN II-XII intact, oriented X3, no focal deficits. Absent: pronater drift, facial droop, speech deficit - Skin Skin exam: Present: dry, intact Internal Medicine: Result - Labs CBC & Chem 7: 08/24/17 04:55 08/24/17 04:55 - ABG Interpretation ABG results: PT/INR, D-dimer PT 11.9 Seconds (9.4-12.1) 08/23/17 19:43 Consult Discharge Plan - Plan Referrals: Francisca Pan, ASSISTANT WRESTLING COACH [Primary Care Provider] -
[2017-08-25] MEDS: Miconazole 2% ointment 114 GM TUBE TP SCH (21:03)
[2017-08-26] MEDS: Gabapentin 100 MG CAPSULE PO SCH ×3 (00:16→16:43)
[2017-08-26] MEDS: ALPRAZolam 0.5 MG TABLET PO SCH (00:16)
[2017-08-26] MEDS: Albuterol 2.5 MG/3 ML NEBULIZER IH SCH ×4 (03:33→15:28)
[2017-08-26] MEDS: *HR* Heparin 5,000 UNIT/ML VIAL SQ SCH (06:35)
[2017-08-26] MEDS: traMADol 50 MG TABLET PO PRN (08:41)
[2017-08-26] MEDS: Magnesium Oxide 400 MG TABLET PO SCH (08:42)
[2017-08-26] MEDS: Cholecalciferol (D-3) 1,000 UNIT TABLET PO SCH (08:42)
[2017-08-26] MEDS: Fluticasone Propionate Nasal 50 MCG/SPRAY BOTTLE NS SCH (08:42)
[2017-08-26] MEDS: Furosemide 20 MG TABLET PO SCH (08:42)
[2017-08-26] MEDS: Aspirin Enteric Coated 325 MG Tablet PO SCH (08:42)
[2017-08-26] MEDS: Miconazole 2% ointment 114 GM TUBE TP SCH (08:42)
[2017-08-26] MEDS ORDERED: NON-FORMULARY MEDICATION 1 EACH EACH (Oxybutynin Chloride [Ditropan Xl] 5 MG) PO SCH (09:00)
[2017-08-26 11:57] VITALS: BP 122/62
--- NOTE | 2017-08-26 14:56 | Discharge Summary ---
Date of Encounter: 08/26/17 Time of Encounter: 14:57 - Discharge Diagnosis (1) Paresthesia of left arm Priority: Primary Status: Acute Assessment and Plan: Presented with paresthesias of left upper arm. Head CT nonacute. Brain MRI without evidence of infarct. Bilateral carotid Dopplers showed normal right carotid arteries and minimal plaque throughout the left carotid artery. TTE with EF 50%, mild diastolic dysfunction, no evidence of PFO, no significant valvular dysfunction. Evaluated by neurology who suspects carpal tunnel syndrome and recommend outpatient EMG. Symptoms resolving but still present. Evaluated by PT/OT who recommended SNF. (2) TIA (transient ischemic attack) Priority: Primary Status: Acute Comments: per patient reported hx. Symptoms and workup as noted above. Cont home ASA, statin Qualifiers: Transient cerebral ischemia type: unspecified Qualified Code(s): G45.9 - Transient cerebral ischemic attack, unspecified (3) Hypertension Priority: Secondary Status: Acute Assessment and Plan: per hx. BP controlled. Cont home BP medications Qualifiers: Hypertension type: essential hypertension Qualified Code(s): I10 - Essential (primary) hypertension (4) Prediabetes Priority: Secondary Status: Acute Assessment and Plan: diet controlled. Blood sugars variable but acceptable. Continue diabetic diet (5) Breast cancer Priority: Secondary Status: Chronic Assessment and Plan: S/P surgery and radiation therapy. Continue outpatient follow-up with cancer center. Qualifiers: Breast location: unspecified site of breast Estrogen receptor status: unspecified Patient sex: female Laterality: left Qualified Code(s): C50.912 - Malignant neoplasm of unspecified site of left female breast (6) Morbid obesity Priority: Secondary Status: Acute Assessment and Plan: BMI 55; weight 133 kg. Lifestyle modifications encouraged but not likely Hospital course: Please see assessment and plan for Hospital course Discharge discussed with: patient (Seen and examined at bedside. Says she was up all night using the bathroom she received her Lasix late. Lower extremity edema worsened which patient states she has been sitting up for several hours. She is aware plan to discharge to SNF. No chest pain or shortness of breath. Still having slight paresthesias to second, third and fourth finger tips on left hand.) - Time Spent with Patient Total time spent providing and/or coordinating discharge services: - Discharge Medications Prescriptions: Tramadol HCl [Ultram] 50 mg PO TID PRN 5 Days #12 tab PRN Reason: Pain Home Medications: ALPRAZolam [Xanax 0.5 MG Tablet] 0.5 mg PO QPM 11/21/14 [History] Albuterol Neb [Proventil Neb] 1 - 2 unit IH Q4HR 11/21/14 [History] Calcium Carbonate/Vitamin D3 [Calcium 600 + D Tablet] 1 each PO DAILY 11/21/14 [ History] Fluticasone Propionate Nasal [Flonase] 1 spray NS DAILY 11/21/14 [History] Gabapentin [Neurontin] 100 mg PO TID 11/21/14 [History] Magnesium Oxide [Mag-Ox] 400 mg PO DAILY 11/21/14 [History] Nitroglycerin [Nitrostat] 0.4 mg SL PRN PRN 11/21/14 [History] Pantoprazole Sodium [Protonix] 40 mg PO DAILY 11/21/14 [History] Potassium Chloride 20 meq PO DAILY 11/21/14 [History] Pravastatin Sodium [Pravachol] 20 mg PO QPM 11/21/14 [History] Aspirin/Calcium Carbonate/Mag [Aspirin Buffered 325 mg Tab] 325 mg PO DAILY 09/29 [History] Polyethylene Glycol 3350 [MiraLAX] 17 gm PO AD PRN #1 powd.pack 11/11/16 [Rx] Calcium Carbonate [Calcium] 600 mg PO DAILY #30 tablet 05/15/17 [Rx] Cholecalciferol (D-3) [Vitamin D] 5,000 unit PO DAILY #30 tablet 05/15/17 [Rx] Ascorbic Acid [Vitamin C] 1,000 mg PO DAILY 08/07/17 [History] Clotrimazole [Mycelex Amelia] 10 mg MM 5XD 08/07/17 [History] Furosemide [Lasix] 20 mg PO DAILY 08/07/17 [History] Metoprolol Succinate [Toprol Xl] 25 mg PO DAILY 08/07/17 [History] Mv, Min #36/Iron,Carbonyl/FA [Geritol Complete Tablet] 1 each PO DAILY 08/07/17 [History] Oxybutynin Chloride [Ditropan Xl] 5 mg PO DAILY 08/07/17 [History] Tramadol HCl [Ultram] 50 mg PO TID PRN 5 Days #12 tab 08/26/17 [Rx] Allergies/Adverse Reactions: 3 Allergy/AdvReac Type Severity Reaction Status Date / Time bupropion [From Wellbutrin] Allergy Hives Verified 05/13/17 15:14 duloxetine [From Cymbalta] Allergy Hives Verified 08/07/17 19:10 Hydromorphone [From Dilaudid] Allergy Hives Verified 05/13/17 15:14 mirabegron [From Myrbetriq] Allergy Hives Verified 08/07/17 19:10 Oxaprozin [From Daypro] Allergy Rash Verified 05/13/17 15:14 acetaminophen [From Percocet] AdvReac Itching Verified 05/13/17 15:14 Oxycodone [From Percocet] AdvReac Itching Verified 05/13/17 15:14 Date of admission: 08/23/17 22:03 Primary care physician: Francisca Pan CNP Consults: 08/24/17 18:20 Consult to Structural Analysis Engineer [CONS] Routine Reason for SW Consult: Discharge planning. PT/OT recommend SNF after discharge. Discharging clinician: Alaina Slater Anticipated date of discharge: 08/26/17 - Constitutional Vitals: Temp Pulse Resp BP Pulse Ox 98.1 F 99 17 122/62 98 08/26/17 11:53 08/26/17 11:53 08/26/17 11:53 08/26/17 11:53 08/26/17 11:53 General appearance: Present: A&O X 3, morbidly obese, pleasant, no acute distress, answers questions appropriately - Head Head exam: Present: atraumatic, normocephalic - Eye Eye exam: Present: PERRL, conjuntiva pink, sclera anicteric Pupils: Present: PERRL - Neck Neck exam general surgery: Present: supple, trachea midline. Absent: lymphadenopathy - Respiratory Respiratory exam: Present: CTAB. Absent: accessory muscle use, rales, rhonchi, wheezes - Cardiovascular Cardiovascular exam: Present: RRR, +S1, +S2. Absent: diastolic murmur, gallop, rubs, systolic murmur - GI/Abdominal GI/Abdominal exam: Present: normal bowel sounds, soft, no peritoneal signs. Absent: distended, tenderness - Extremities Exam Extremities exam: Present: warm, radial pulses palpable and symmetrical. Absent : calf tenderness, cyanotic, pedal edema - Neurological Exam Neurological exam: Present: CN II-XII intact, oriented X3, no focal deficits. Absent: pronater drift, facial droop, speech deficit - Skin Skin exam: Present: dry, intact - Patient Status Disposition: Home Health Service Condition: Good Functional capacity at discharge: uses cane/walker Overall status at discharge: patient is back to baseline - Discharge Instructions Instructions: Carpal Tunnel Syndrome Exercises (GEN), Carpal Tunnel Syndrome ( DC) Follow Up With: Francisca Pan CNP [Primary Care Provider] - Oswaldo Romero MD [Partnered Physician] - (Will need to follow-up with neurology outpatient for EMG) Forms: ED Satisfaction Letter - Diet and Activity Activity: as per physical therapy Diet: low fat, low cholesterol, low salt diet
--- NOTE | 2017-08-26 15:03 | Physician Discharge Referral ---
ExtendedCare Referral Info Transfer To: [facility] Provider in Charge: Alaina Slater CNP Provider in Charge after Transfer: PCP Institutional Level of Care: Skilled - Diagnosis (1) Paresthesia of left arm Status: Acute (2) TIA (transient ischemic attack) Status: Acute (3) Hypertension Status: Acute (4) Prediabetes Status: Acute (5) Breast cancer Status: Chronic (6) Morbid obesity Status: Acute - Transfer Medications Prescriptions: Tramadol HCl [Ultram] 50 mg PO TID PRN 5 Days #12 tab PRN Reason: Pain Home Medications: ALPRAZolam [Xanax 0.5 MG Tablet] 0.5 mg PO QPM 11/21/14 [History] Albuterol Neb [Proventil Neb] 1 - 2 unit IH Q4HR 11/21/14 [History] Calcium Carbonate/Vitamin D3 [Calcium 600 + D Tablet] 1 each PO DAILY 11/21/14 [ History] Fluticasone Propionate Nasal [Flonase] 1 spray NS DAILY 11/21/14 [History] Gabapentin [Neurontin] 100 mg PO TID 11/21/14 [History] Magnesium Oxide [Mag-Ox] 400 mg PO DAILY 11/21/14 [History] Nitroglycerin [Nitrostat] 0.4 mg SL PRN PRN 11/21/14 [History] Pantoprazole Sodium [Protonix] 40 mg PO DAILY 11/21/14 [History] Potassium Chloride 20 meq PO DAILY 11/21/14 [History] Pravastatin Sodium [Pravachol] 20 mg PO QPM 11/21/14 [History] Aspirin/Calcium Carbonate/Mag [Aspirin Buffered 325 mg Tab] 325 mg PO DAILY 09/29 [History] Polyethylene Glycol 3350 [MiraLAX] 17 gm PO AD PRN #1 powd.pack 11/11/16 [Rx] Calcium Carbonate [Calcium] 600 mg PO DAILY #30 tablet 05/15/17 [Rx] Cholecalciferol (D-3) [Vitamin D] 5,000 unit PO DAILY #30 tablet 05/15/17 [Rx] Ascorbic Acid [Vitamin C] 1,000 mg PO DAILY 08/07/17 [History] Clotrimazole [Mycelex Amelia] 10 mg MM 5XD 08/07/17 [History] Furosemide [Lasix] 20 mg PO DAILY 08/07/17 [History] Metoprolol Succinate [Toprol Xl] 25 mg PO DAILY 08/07/17 [History] Mv, Min #36/Iron,Carbonyl/FA [Geritol Complete Tablet] 1 each PO DAILY 08/07/17 [History] Oxybutynin Chloride [Ditropan Xl] 5 mg PO DAILY 08/07/17 [History] Tramadol HCl [Ultram] 50 mg PO TID PRN 5 Days #12 tab 08/26/17 [Rx] Allergies/Adverse Reactions: 3 Allergy/AdvReac Type Severity Reaction Status Date / Time bupropion [From Wellbutrin] Allergy Hives Verified 05/13/17 15:14 duloxetine [From Cymbalta] Allergy Hives Verified 08/07/17 19:10 Hydromorphone [From Dilaudid] Allergy Hives Verified 05/13/17 15:14 mirabegron [From Myrbetriq] Allergy Hives Verified 08/07/17 19:10 Oxaprozin [From Daypro] Allergy Rash Verified 05/13/17 15:14 acetaminophen [From Percocet] AdvReac Itching Verified 05/13/17 15:14 Oxycodone [From Percocet] AdvReac Itching Verified 05/13/17 15:14 - Respiratory Orders None Smoking Cessation: Smoking cessation has been advised. For more information, call the [place] Tobacco Quit Line at 4-306-LQLS-NOW. - Advance Directives Code Status: Full Code - Mobility Orders Ambulate - Rehabiliation Orders Rehab Potential: Good Rehab Orders: Evaluation for Physical Therapy, Evaluation for Occupational Therapy - Treatments List/Other: Keep legs elevated as much as possible. Apply moisturizer as needed per patient - Diet Orders No Concentrated Sweets, Cardiac CERTIFICATION: I certify that the transfer of the above named patient to an Extended Care Facility is necessary for the continuing treatment of the diagnosis listed. The above information is true and accurate reflection of patient's current condition. Confidential - Redisclosure prohibited without a patient's written consent.
[2017-08-26] MEDS: Ipratropium/Albuterol Neb 3 ML IH PRN (15:10)
== END 2017-08-26 17:58 | disposition home health service (06) | DRG 74 ==
LOC: EMEROO 18:41 → 3BNU 18:41
PROVIDERS: ADMIT Internal Medicine; ATTEND Internal Medicine

== ENCOUNTER 2021-06-19 23:44 | Inpatient (IN) ==
[2021-06-19] MEDS ORDERED: Isovue-370 500 ML BOTTLE IVP ONE (23:55)
[2021-06-20 00:38] LABS: BUN/Creatinine Ratio 18 (6-26); Blood Urea Nitrogen 12 mg/dL (8-23); Calcium 8.8 mg/dL (8.6-10.3); Carbon Dioxide 27 mEq/L (23-29); Chloride 106 mEq/L (98-107); Creatine Kinase 92 Units/L (30-223); Ethanol < 10 mg/dL (Less than 10); Glucose 125 mg/dL (70-105); Osmolality,Calculated 289 (280-300); Sodium 139 mEq/L (136-145); Troponin I < 0.03 ng/mL (< 0.04); eGFR For African Americans > 60 (> 60); eGFR For Non-African Americans > 60 (> 60)
[2021-06-20 00:40] LABS: INR 1.1; Prothrombin Time 12.3 Seconds (9.4-12.1)
[2021-06-20 00:41] LABS: Hematocrit 38.7 % (35.3-44.9); Hemoglobin 12.4 g/dL (11.5-15.4); Mean Corpuscular Volume 93.7 fL (83.0-100.0); Mean Platelet Volume 10.8 fL (9.4-12.4); Platelet Count 261 K/mcL (140-400); Red Blood Count 4.13 M/mcL (3.82-4.97); Red Cell Distribution Width 14.6 % (11.5-14.5); White Blood Count 7.4 K/mcL (4.3-11.1)
[2021-06-20 00:42] LABS: Activated Partial Thrombo Time 28.2 Seconds (26.0-36.0)
[2021-06-20 02:02] LABS: Amphetamine Screen,Urine Negative ng/mL (Cutoff=1000); Barbiturate Screen,Urine Negative ng/mL (Cutoff=200); Benzodiazepines Screen,Urine Negative ng/mL (Cutoff=200); Cannabinoid Screen,Urine Negative ng/mL (Cutoff = 50); Cocaine Screen,Urine Negative ng/mL (Cutoff= 300); Opiate Screen,Urine Negative ng/mL (Cutoff=300); Phencyclidine Screen,Urine Negative ng/mL (Cutoff=25)
[2021-06-20 02:18] LABS: Bilirubin,Urine Negative (Negative); Blood,Urine Negative (Negative); Clarity,Urine Clear (Clear); Color,Urine Yellow (Yellow); Glucose,Urine (UA) Normal (Normal); Ketones,Urine Negative (Negative); Leukocyte Esterase,Urine Large (Negative); Mucus,Urine Few per lpf (None-Few); Nitrite,Urine Negative (Negative); PH,Urine 6.5 pH Units (5.0-8.0); Protein,Urine Negative (Neg-Trace); RBC,Urine 0-3 per hpf (0-3); Specific Gravity,Urine 1.017 (1.010-1.025); Squamous Epithelial Cell,Urine Few per hpf (None-Few); Urobilinogen,Urine Normal (Normal); WBC,Urine 50-100 per hpf (0-3)
[2021-06-20] MEDS ORDERED: Ondansetron 4 MG/2 ML VIAL IVP PRN (03:00)
[2021-06-20] MEDS ORDERED: Naloxone 0.4 MG/ML INJ IVP PRN (03:00)
[2021-06-20] MEDS ORDERED: Perflutren Lipid Microsphere 1.3 ML in 0.9 % Sodium Chloride 8.7 ML IVP PRN ×2 (03:03→08:10)
[2021-06-20] MEDS: Aspirin Enteric Coated 325 MG Tablet PO SCH ×2 (05:40→09:57)
[2021-06-20 06:26] LABS: Hematocrit 38.6 % (35.3-44.9); Hemoglobin 12.3 g/dL (11.5-15.4); Mean Corpuscular HGB Conc 31.9 g/dL (31.6-35.5); Mean Corpuscular Hemoglobin 29.7 pg (28.0-33.3); Mean Corpuscular Volume 93.2 fL (83.0-100.0); Mean Platelet Volume 10.7 fL (9.4-12.4); Platelet Count 254 K/mcL (140-400); Red Blood Count 4.14 M/mcL (3.82-4.97); Red Cell Distribution Width 14.9 % (11.5-14.5); White Blood Count 7.6 K/mcL (4.3-11.1)
[2021-06-20 06:39] LABS: BUN/Creatinine Ratio 18 (6-26); Blood Urea Nitrogen 11 mg/dL (8-23); Carbon Dioxide 25 mEq/L (23-29); Chloride 107 mEq/L (98-107); Potassium 3.9 mEq/L (3.5-5.1); Sodium 142 mEq/L (136-145); eGFR For African Americans > 60 (> 60); eGFR For Non-African Americans > 60 (> 60)
[2021-06-20 08:53] LABS: Glucose 102 mg/dL (70-105); Osmolality,Calculated 294 (280-300)
[2021-06-20 09:37] LABS: Thyroid Stimulating Hormone 2.976 mcIU/mL (0.340-5.600)
[2021-06-20 09:51] LABS: Folate 9.1 ng/mL (3.0-16.0)
[2021-06-20] MEDS: cefTRIAXone 1,000 MG in 0.9 % Sodium Chloride Mini Bag 100 ML IVPB SCH (09:57)
[2021-06-20] MEDS: Lactobacillus 1 EACH CAP.SPRINK PO SCH ×2 (09:57→21:03)
[2021-06-20 11:11] LABS: Estimated Average Glucose 128 mg/dl; Hemoglobin A1C 6.1 %
[2021-06-20] MEDS ORDERED: Fluticasone Propionate Nasal 50 MCG/SPRAY BOTTLE NS PRN (13:13)
[2021-06-20] MEDS: Gabapentin 100 MG CAPSULE PO SCH ×2 (15:44→21:03)
[2021-06-21] MEDS: Metoprolol XL (24 HR) Succ 25 MG TAB.ER.24H PO SCH (07:58)
[2021-06-21] MEDS: Lactobacillus 1 EACH CAP.SPRINK PO SCH ×2 (08:24→20:29)
[2021-06-21] MEDS: cefTRIAXone 1,000 MG in 0.9 % Sodium Chloride Mini Bag 100 ML IVPB SCH (08:24)
[2021-06-21] MEDS: Cyanocobalamin (B-12) 1,000 MCG TABLET PO SCH (08:24)
[2021-06-21] MEDS: Gabapentin 100 MG CAPSULE PO SCH ×3 (08:24→20:29)
[2021-06-21] MEDS: Aspirin Enteric Coated 325 MG Tablet PO SCH (08:24)
[2021-06-21] MEDS ORDERED: Aspirin 325 MG TABLET PO SCH (09:00)
[2021-06-21] MEDS ORDERED: Ipratropium/Albuterol Neb 3 ML IH PRN (21:42)
[2021-06-22] MEDS: Cyanocobalamin (B-12) 1,000 MCG TABLET PO SCH (08:53)
[2021-06-22] MEDS: *HR* Enoxaparin 40 MG/0.4 ML SYRINGE SQ SCH ×2 (08:53→21:34)
[2021-06-22] MEDS: Aspirin Enteric Coated 325 MG Tablet PO SCH (08:53)
[2021-06-22] MEDS: Lactobacillus 1 EACH CAP.SPRINK PO SCH ×2 (08:53→21:32)
[2021-06-22] MEDS: Gabapentin 100 MG CAPSULE PO SCH ×3 (08:53→21:33)
[2021-06-22] MEDS: Metoprolol XL (24 HR) Succ 25 MG TAB.ER.24H PO SCH (08:54)
[2021-06-23] MEDS ORDERED: Nystatin POWDER 30 GM BOTTLE TP PRN (08:57)
[2021-06-23] MEDS: *HR* Enoxaparin 40 MG/0.4 ML SYRINGE SQ SCH ×2 (09:16→21:49)
[2021-06-23] MEDS: Aspirin Enteric Coated 325 MG Tablet PO SCH (09:16)
[2021-06-23] MEDS: Gabapentin 100 MG CAPSULE PO SCH ×3 (09:16→21:49)
[2021-06-23] MEDS: Metoprolol XL (24 HR) Succ 25 MG TAB.ER.24H PO SCH (09:17)
[2021-06-23] MEDS: Cyanocobalamin (B-12) 1,000 MCG TABLET PO SCH (09:17)
[2021-06-23] MEDS: Lactobacillus 1 EACH CAP.SPRINK PO SCH ×2 (09:17→21:49)
[2021-06-24 07:39] VITALS: BP 116/67; PULSE 54; TEMP 98.3; O2SAT 93
[2021-06-24] MEDS: Metoprolol XL (24 HR) Succ 25 MG TAB.ER.24H PO SCH (09:28)
[2021-06-24] MEDS: Aspirin Enteric Coated 325 MG Tablet PO SCH (09:28)
[2021-06-24] MEDS: Cyanocobalamin (B-12) 1,000 MCG TABLET PO SCH (09:28)
[2021-06-24] MEDS: Gabapentin 100 MG CAPSULE PO SCH (09:28)
[2021-06-24] MEDS: Lactobacillus 1 EACH CAP.SPRINK PO SCH (09:28)
[2021-06-24] MEDS: *HR* Enoxaparin 40 MG/0.4 ML SYRINGE SQ SCH (09:28)
== END 2021-06-24 12:40 | disposition home health service (06) | DRG 74 ==
LOC: 3BNU 23:44 → EMEROOARM 23:44 → SUATTDRO 06-20 02:50 → 3BNU 06-20 03:42 → SUATTDRO 06-21 14:28
PROVIDERS: ADMIT Internal Medicine; ATTEND Internal Medicine

== ENCOUNTER 2021-08-27 11:31 | Inpatient (IN) ==
[2021-08-27] MEDS ORDERED: 0.9 % Sodium Chloride 1,000 ML IVC ONE (11:41)
[2021-08-27 12:15] LABS: Basophils % 0.1 %; Hematocrit 54.4 % (35.3-44.9); Hemoglobin 17.1 g/dL (11.5-15.4); Immature Granulocytes % 0.6 % (0-4); Lymphocytes # 0.6 K/mcL (0.6-4.6); Lymphocytes % 2.8 %; Mean Corpuscular HGB Conc 31.4 g/dL (31.6-35.5); Mean Corpuscular Hemoglobin 29.5 pg (28.0-33.3); Mean Platelet Volume 11.1 fL (9.4-12.4); Monocytes # 1.2 K/mcL (0.0-1.3); Monocytes % 5.5 %; Neutrophils # 18.9 K/mcL (1.6-8.9); Platelet Count 281 K/mcL (140-400); Red Blood Count 5.79 M/mcL (3.82-4.97); Red Cell Distribution Width 14.9 % (11.5-14.5); White Blood Count 20.8 K/mcL (4.3-11.1)
[2021-08-27 12:23] LABS: INR 1.2; Prothrombin Time 13.7 Seconds (9.4-12.1)
[2021-08-27 12:25] LABS: Activated Partial Thrombo Time 32.4 Seconds (26.0-36.0)
[2021-08-27 13:06] LABS: Albumin 4.4 g/dL (3.5-5.7); Bilirubin,Direct 0.4 mg/dL (0.0-0.2); Bilirubin,Indirect 0.8 mg/dL (0.0-1.0); Bilirubin,Total 1.2 mg/dL (0.3-1.0); Calcium 9.7 mg/dL (8.6-10.3); Globulin 4.3 g/dL (2.4-3.5); Potassium 4.4 mEq/L (3.5-5.1); Total Protein 8.7 g/dL (6.4-8.9); Troponin I 0.15 ng/mL (< 0.04)
[2021-08-27 13:20] LABS: Bacteria,Urine Few per hpf (None-Few); Bilirubin,Urine Negative (Negative); Blood,Urine Large (Negative); Clarity,Urine Turbid (Clear); Color,Urine Yellow (Yellow); Glucose,Urine (UA) Normal (Normal); Ketones,Urine 10 mg/dL (Negative); Leukocyte Esterase,Urine Negative (Negative); Mucus,Urine Few per lpf (None-Few); Nitrite,Urine Negative (Negative); PH,Urine 5.5 pH Units (5.0-8.0); Protein,Urine 30 mg/dL (Neg-Trace); RBC,Urine 0-3 per hpf (0-3); Specific Gravity,Urine 1.024 (1.010-1.025); Squamous Epithelial Cell,Urine Few per hpf (None-Few); WBC,Urine 0-3 per hpf (0-3)
[2021-08-27] MEDS ORDERED: Naloxone 0.4 MG/ML INJ IVP PRN (15:13)
[2021-08-27] MEDS ORDERED: *HR* Heparin 5,000 UNIT/ML VIAL ONE (20:28)
[2021-08-27] MEDS: *HR* Heparin 5,000 UNIT/ML VIAL SQ SCH ×2 (20:46→21:08)
[2021-08-27] MEDS: 0.9 % Sodium Chloride 1,000 ML IVC SCH (20:46)
[2021-08-28 06:04] LABS: Basophils % 0.2 %; Hematocrit 51.7 % (35.3-44.9); Hemoglobin 16.6 g/dL (11.5-15.4); Immature Granulocytes % 0.5 % (0-4); Lymphocytes % 5.8 %; Mean Corpuscular HGB Conc 32.1 g/dL (31.6-35.5); Mean Corpuscular Hemoglobin 29.5 pg (28.0-33.3); Mean Corpuscular Volume 91.8 fL (83.0-100.0); Monocytes # 1.6 K/mcL (0.0-1.3); Monocytes % 9.8 %; Neutrophils # 13.9 K/mcL (1.6-8.9); Platelet Count 215 K/mcL (140-400); Red Blood Count 5.63 M/mcL (3.82-4.97); Segmented Neutrophils % 83.7 %; White Blood Count 16.6 K/mcL (4.3-11.1)
[2021-08-28 09:21] LABS: BUN/Creatinine Ratio 21 (6-26); Blood Urea Nitrogen 40 mg/dL (8-23); Calcium 7.9 mg/dL (8.6-10.3); Carbon Dioxide 19 mEq/L (23-29); Chloride 106 mEq/L (98-107); Creatine Kinase > 20000 Units/L (30-223); Glucose 151 mg/dL (70-105); Osmolality,Calculated 297 (280-300); Potassium 4.7 mEq/L (3.5-5.1); Sodium 137 mEq/L (136-145); eGFR For African Americans 30 (> 60); eGFR For Non-African Americans 25 (> 60)
[2021-08-28] MEDS: 0.9 % Sodium Chloride 1,000 ML IVC SCH (09:58)
[2021-08-28] MEDS ORDERED: Fluticasone Propionate Nasal 50 MCG/SPRAY BOTTLE NS PRN (11:44)
[2021-08-28 15:19] LABS: Calcium 7.5 mg/dL (8.6-10.3); Potassium 4.6 mEq/L (3.5-5.1); Troponin I 0.16 ng/mL (< 0.04)
[2021-08-28] MEDS: Ringers Solution, Lactated 1,000 ML IVC SCH ×2 (16:21→22:22)
[2021-08-28] MEDS: *HR* Heparin 5,000 UNIT/ML VIAL SQ SCH ×2 (16:22→22:20)
[2021-08-28] MEDS: Gabapentin 100 MG CAPSULE PO SCH (22:20)
[2021-08-29] MEDS: *HR* Heparin 5,000 UNIT/ML VIAL SQ SCH ×3 (05:46→22:28)
[2021-08-29] MEDS: Ringers Solution, Lactated 1,000 ML IVC SCH ×2 (05:46→15:38)
[2021-08-29 06:51] LABS: Basophils % 0.2 %; Eosinophils % 0.2 %; Hematocrit 42.8 % (35.3-44.9); Immature Granulocytes % 0.7 % (0-4); Lymphocytes # 1.4 K/mcL (0.6-4.6); Lymphocytes % 10.7 %; Mean Corpuscular HGB Conc 31.5 g/dL (31.6-35.5); Mean Corpuscular Hemoglobin 29.1 pg (28.0-33.3); Mean Corpuscular Volume 92.2 fL (83.0-100.0); Mean Platelet Volume 11.1 fL (9.4-12.4); Monocytes # 1.4 K/mcL (0.0-1.3); Monocytes % 10.9 %; Neutrophils # 10.2 K/mcL (1.6-8.9); Platelet Count 169 K/mcL (140-400); Red Blood Count 4.64 M/mcL (3.82-4.97); Red Cell Distribution Width 14.6 % (11.5-14.5); Segmented Neutrophils % 77.3 %; White Blood Count 13.2 K/mcL (4.3-11.1)
[2021-08-29 07:07] LABS: Hemoglobin 13.5 g/dL (11.5-15.4)
[2021-08-29 07:19] LABS: Troponin I 0.2 ng/mL (< 0.04)
[2021-08-29 07:33] LABS: Calcium 7.2 mg/dL (8.6-10.3); Potassium 4.7 mEq/L (3.5-5.1)
[2021-08-29] MEDS: Metoprolol XL (24 HR) Succ 25 MG TAB.ER.24H PO SCH (09:32)
[2021-08-29] MEDS: Sodium Bicarbonate 75 MEQ in 0.45 % Sodium Chloride 1,000 ML IVC SCH (13:56)
[2021-08-29] MEDS: Gabapentin 100 MG CAPSULE PO SCH (22:24)
[2021-08-29] MEDS: Nystatin POWDER 30 GM BOTTLE TP SCH (22:28)
[2021-08-30 02:57] LABS: Basophils % 0.4 %; Eosinophils # 0.2 K/mcL (0.0-0.6); Eosinophils % 1.6 %; Hematocrit 37.2 % (35.3-44.9); Lymphocytes # 1.6 K/mcL (0.6-4.6); Lymphocytes % 14.9 %; Mean Corpuscular HGB Conc 31.7 g/dL (31.6-35.5); Mean Corpuscular Hemoglobin 28.9 pg (28.0-33.3); Mean Platelet Volume 11.3 fL (9.4-12.4); Monocytes % 9.1 %; Neutrophils # 7.6 K/mcL (1.6-8.9); Platelet Count 150 K/mcL (140-400); Red Blood Count 4.09 M/mcL (3.82-4.97); Red Cell Distribution Width 14.4 % (11.5-14.5); White Blood Count 10.4 K/mcL (4.3-11.1)
[2021-08-30 03:01] LABS: Hemoglobin 11.8 g/dL (11.5-15.4)
[2021-08-30 03:15] LABS: Calcium 6.9 mg/dL (8.6-10.3); Potassium 4.6 mEq/L (3.5-5.1)
[2021-08-30] MEDS: Sodium Bicarbonate 75 MEQ in 0.45 % Sodium Chloride 1,000 ML IVC SCH ×2 (05:15→12:37)
[2021-08-30] MEDS: *HR* Heparin 5,000 UNIT/ML VIAL SQ SCH ×3 (05:17→20:35)
[2021-08-30 08:59] LABS: Magnesium 1.9 mg/dL (1.6-2.6)
[2021-08-30] MEDS: Nystatin POWDER 30 GM BOTTLE TP SCH ×2 (09:01→20:35)
[2021-08-30] MEDS: Metoprolol XL (24 HR) Succ 25 MG TAB.ER.24H PO SCH (09:01)
[2021-08-30 12:17] LABS: Sodium, Urine 29.3 mEq/L
[2021-08-30 12:32] LABS: Protein/Creatinine Ratio,Urine 1.05 mg/mg (0.00-0.20)
[2021-08-30] MEDS: Gabapentin 100 MG CAPSULE PO SCH (20:34)
[2021-08-31] MEDS: Sodium Bicarbonate 75 MEQ in 0.45 % Sodium Chloride 1,000 ML IVC SCH ×3 (00:44→07:50)
[2021-08-31 05:27] LABS: Calcium 7.2 mg/dL (8.6-10.3); Phosphorous 4.4 mg/dL (2.7-4.5); Potassium 4.4 mEq/L (3.5-5.1)
[2021-08-31] MEDS: *HR* Heparin 5,000 UNIT/ML VIAL SQ SCH ×3 (06:07→20:47)
[2021-08-31] MEDS: Ringers Solution, Lactated 1,000 ML IVC SCH (06:07)
[2021-08-31] MEDS: Metoprolol XL (24 HR) Succ 25 MG TAB.ER.24H PO SCH (07:50)
[2021-08-31] MEDS: Nystatin POWDER 30 GM BOTTLE TP SCH ×2 (07:50→20:48)
[2021-08-31] MEDS: 0.9 % Sodium Chloride 1,000 ML IVC SCH ×2 (10:55→17:18)
[2021-08-31] MEDS: Acetaminophen 325 MG TABLET PO PRN (11:53)
[2021-08-31] MEDS: Gabapentin 100 MG CAPSULE PO SCH (20:46)
[2021-09-01] MEDS: Acetaminophen 325 MG TABLET PO PRN (02:49)
[2021-09-01 05:49] LABS: Potassium 4.4 mEq/L (3.5-5.1)
[2021-09-01] MEDS: Metoprolol XL (24 HR) Succ 25 MG TAB.ER.24H PO SCH (10:01)
[2021-09-01] MEDS: *HR* Heparin 5,000 UNIT/ML VIAL SQ SCH ×3 (10:01→22:29)
[2021-09-01] MEDS: 0.9 % Sodium Chloride 1,000 ML IVC SCH ×3 (10:09→22:28)
[2021-09-01] MEDS: Nystatin POWDER 30 GM BOTTLE TP SCH ×2 (17:00→22:29)
[2021-09-01] MEDS: Gabapentin 100 MG CAPSULE PO SCH (22:29)
[2021-09-02 05:20] LABS: Basophils # 0.1 K/mcL (0.0-0.2); Eosinophils # 0.7 K/mcL (0.0-0.6); Eosinophils % 6.6 %; Hematocrit 38.6 % (35.3-44.9); Immature Granulocytes % 3.8 % (0-4); Lymphocytes # 1.2 K/mcL (0.6-4.6); Lymphocytes % 11.8 %; Mean Corpuscular HGB Conc 31.1 g/dL (31.6-35.5); Mean Corpuscular Hemoglobin 29.1 pg (28.0-33.3); Mean Corpuscular Volume 93.5 fL (83.0-100.0); Mean Platelet Volume 11.3 fL (9.4-12.4); Monocytes % 10.3 %; Neutrophils # 6.6 K/mcL (1.6-8.9); Platelet Count 170 K/mcL (140-400); Red Blood Count 4.13 M/mcL (3.82-4.97); Red Cell Distribution Width 14.8 % (11.5-14.5); Segmented Neutrophils % 66.5 %; White Blood Count 9.9 K/mcL (4.3-11.1)
[2021-09-02 05:51] LABS: Calcium 7.2 mg/dL (8.6-10.3); Potassium 4.6 mEq/L (3.5-5.1)
[2021-09-02] MEDS: *HR* Heparin 5,000 UNIT/ML VIAL SQ SCH ×3 (06:14→20:31)
[2021-09-02] MEDS: 0.9 % Sodium Chloride 1,000 ML IVC SCH ×4 (06:14→20:32)
[2021-09-02] MEDS: Acetaminophen 325 MG TABLET PO PRN (06:24)
[2021-09-02] MEDS ORDERED: 0.9 % Sodium Chloride 250 ML IVC ONE (06:34)
[2021-09-02] MEDS: Metoprolol XL (24 HR) Succ 25 MG TAB.ER.24H PO SCH (08:49)
[2021-09-02] MEDS ORDERED: Perflutren Lipid Microsphere 1.3 ML in 0.9 % Sodium Chloride 8.7 ML IVP PRN (11:34)
[2021-09-02] MEDS ORDERED: Albumin Human 5% 12.5 GM/250 ML IV.SOLN IVPB ONE (11:50)
[2021-09-02 14:47] LABS: Bacteria,Urine Few per hpf (None-Few); Bilirubin,Urine Negative (Negative); Blood,Urine Moderate (Negative); Budding Yeast,Urine Few per hpf (None Seen); Clarity,Urine Clear (Clear); Color,Urine Colorless (Yellow); Glucose,Urine (UA) Normal (Normal); Ketones,Urine Negative (Negative); Leukocyte Esterase,Urine Small (Negative); Nitrite,Urine Negative (Negative); PH,Urine 6.5 pH Units (5.0-8.0); Protein,Urine Trace mg/dL (Neg-Trace); Urobilinogen,Urine Normal (Normal)
[2021-09-02] MEDS: Nystatin POWDER 30 GM BOTTLE TP SCH ×2 (19:34→20:32)
[2021-09-02] MEDS: Gabapentin 100 MG CAPSULE PO SCH (20:32)
[2021-09-03 02:28] LABS: Basophils # 0.1 K/mcL (0.0-0.2); Basophils % 0.7 %; Eosinophils # 0.7 K/mcL (0.0-0.6); Eosinophils % 6.8 %; Hematocrit 37.1 % (35.3-44.9); Hemoglobin 11.6 g/dL (11.5-15.4); Immature Granulocytes % 3.8 % (0-4); Lymphocytes # 1.1 K/mcL (0.6-4.6); Lymphocytes % 10.9 %; Mean Corpuscular HGB Conc 31.3 g/dL (31.6-35.5); Mean Corpuscular Hemoglobin 29.1 pg (28.0-33.3); Mean Platelet Volume 11.3 fL (9.4-12.4); Monocytes % 9.8 %; Neutrophils # 6.9 K/mcL (1.6-8.9); Platelet Count 180 K/mcL (140-400); Red Blood Count 3.99 M/mcL (3.82-4.97); Red Cell Distribution Width 14.8 % (11.5-14.5); White Blood Count 10.2 K/mcL (4.3-11.1)
[2021-09-03 02:45] LABS: Calcium 7.4 mg/dL (8.6-10.3); Magnesium 1.7 mg/dL (1.6-2.6); Potassium 4.3 mEq/L (3.5-5.1)
[2021-09-03] MEDS: *HR* Heparin 5,000 UNIT/ML VIAL SQ SCH ×3 (06:02→22:22)
[2021-09-03] MEDS: Metoprolol XL (24 HR) Succ 25 MG TAB.ER.24H PO SCH (08:30)
[2021-09-03] MEDS: 0.9 % Sodium Chloride 1,000 ML IVC SCH ×3 (08:37→22:23)
[2021-09-03] MEDS: Nystatin POWDER 30 GM BOTTLE TP SCH ×2 (13:09→22:23)
[2021-09-03] MEDS: Gabapentin 100 MG CAPSULE PO SCH (22:22)
[2021-09-03] MEDS: Acetaminophen 325 MG TABLET PO PRN (22:22)
[2021-09-04] MEDS: *HR* Heparin 5,000 UNIT/ML VIAL SQ SCH ×2 (05:18→12:11)
[2021-09-04 06:06] LABS: Calcium 7.8 mg/dL (8.6-10.3); Magnesium 1.7 mg/dL (1.6-2.6); Potassium 4.2 mEq/L (3.5-5.1)
[2021-09-04 06:56] VITALS: O2SAT 95
[2021-09-04] MEDS: Nystatin POWDER 30 GM BOTTLE TP SCH (09:23)
[2021-09-04] MEDS: Metoprolol XL (24 HR) Succ 25 MG TAB.ER.24H PO SCH (09:23)
[2021-09-04] MEDS: 0.9 % Sodium Chloride 1,000 ML IVC SCH (09:36)
[2021-09-04 11:21] VITALS: BP 126/66; PULSE 62; TEMP 97.5
== END 2021-09-04 20:44 | DRG 682 ==
LOC: 3NENU 11:31 → EMEROOARM 11:31 → 3NENU 14:41 → SUATTDRO 15:14 → 3NENU 15:27
PROVIDERS: ADMIT Hospitalist; ATTEND Hospitalist